=== PATIENT | female | born 1985 ===

== ENCOUNTER → 2021-02-27 | Outpatient (CLI) | payer SELFPAY | END | disposition home or self-care (01) | LOC: LAB 10:05 → LAB SHORT 10:05 | DX: U07.1 COVID-19 (principal) | CPT/HCPCS: 85379 ==

== ENCOUNTER → 2021-05-25 | Outpatient (CLI) | payer BC | LOC: LAB SHORT 12:36 → LAB 12:36 | DX: D48.5 Neoplasm of uncertain behavior of skin (principal); D22.61 Melanocytic nevi of right upper limb, including shoulder | CPT/HCPCS: 88305 ==